=== PATIENT | male | born 1945 | race Caucasian/White ===

== ENCOUNTER 2025-03-22 15:45 | Emergency (ER) | payer MEDICARE, SELFPAY ==
[2025-03-22] VITALS (12 sets, daily range): BP systolic 158; BP diastolic 88; PULSE 69–92; RESP 20; TEMP 36.6; O2SAT 96–100; BMI 27.2
--- NOTE | 2025-03-22 16:14 | CRLHL7_ITS ---
For Patients: As a result of the Century Cures Act, medical imaging exams and procedure reports are released immediately into your electronic medical record. You may view this report before your referring provider. If you have questions, please contact your health care provider. INDICATION: Chest pain. TECHNIQUE: Chest 2 views. COMPARISON: None FINDINGS: Tubes and devices: None. Lungs: Lungs are clear. Hyperinflation. No sign of infiltrate or mass. Pleura: No pleural effusion. No pneumothorax. Heart: Heart size and vasculature are normal in caliber and appearance. Shameka and Mediastinum: No enlargement. Bones and soft tissues: No significant findings. IMPRESSION: Hyperinflation of both lungs. No focal infiltrates. Dictated by Gregorio Carrasco MD @ 03/22/2025 4:36:15 PM (Electronically Signed)
--- NOTE | 2025-03-22 16:15 | ED.GENADULT ---
HPI - General Adult General Time Seen by Provider: 16:15 Date Seen: 03/22/25 Chief complaint: Chest Pain Stated complaint: Chest pain Time Seen by Provider: 03/22/25 15:54 Source: patient Mode of arrival: ambulatory Limitations: no limitations History of Present Illness HPI narrative: Mainor an 80-year-old male with a history of hyperlipidemia, bladder cancer status post cystectomy, chronic kidney disease, no cardiac disease presents emergency department via private car and significant other with chest pain. 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 He did not have any shortness of breath or changes with inspiration. Pain is minimal, 2/10, patient took 6 baby aspirin and 1 full dose aspirin. He had a episode that occurred 2 times similar in the past, usually resolves when he is at rest after 45 minutes. This discomfort has persisted over an hour. Father of an [place] when he was 71. Patient denies any nausea vomiting, no back pain or abdominal pain. Patient is unsure if he injured something. Related Data Home Medications ?Medication ?Instructions ?Recorded ?Confirmed simvastatin 10 mg tablet 10 mg PO DAILY 03/22/25 03/22/25 Allergies Allergy/AdvReac Type Severity Reaction Status Date / Time No Known Drug Allergies Allergy Verified 03/22/25 15:53 Review of Systems Status of ROS: Reports: 10 or more systems reviewed and unremarkable except as noted in History and below Exam Narrative: Exam Narrative: General: No obvious distress sitting comfortably HEENT: Pupils equal round reactive, extraocular muscles intact Neck: Supple, no JVD Lungs: Clear to auscultation bilaterally Heart: Normal sinus rhythm S1-S2 Abdomen: Nontender, soft, bowel sounds present Muscle skeletal: No real tenderness to left anterior chest wall Extremities: No lower extremity edema Neuro: GCS 15 Const: Vital Signs, click to edit/add: Vital Signs - 24 hr 03/22/25 15:54 03/22/25 16:57 03/22/25 17:00 Temperature 97.9 F Pulse Rate 75 80 Pulse Rate [Pulse Oximeter] 92 Respiratory Rate 20 Blood Pressure [Ri ght Upper Arm] 158/88 H Pulse Oximetry 97 96 97 Oxygen Delivery Ca thod Room Air 03/22/25 17:15 03/22/25 17:39 03/22/25 17:45 Temperature Pulse Rate 69 76 83 Pulse Rate [Pulse Oximeter] Respiratory Rate Blood Pressure [Ri ght Upper Arm] Pulse Oximetry 96 99 98 Oxygen Delivery Me thod 03/22/25 18:00 03/22/25 18:15 03/22/25 18:30 Temperature Pulse Rate 79 79 70 Pulse Rate [Pulse Oximeter] Respiratory Rate Blood Pressure [Ri ght Upper Arm] Pulse Oximetry 97 100 97 Oxygen Delivery Me thod 03/22/25 18:45 Temperature Pulse Rate 75 Pulse Rate [Pulse Oximeter] Respiratory Rate Blood Pressure [Ri ght Upper Arm] Pulse Oximetry 98 Oxygen Delivery Me thod Course Course ED Course: ED course: 4:00 PM: aidet performed. vitals are stable. Workup will include IV peripheral, 15 mg IV Toradol, will obtain EKG, point of care troponins, CBC, CRP, NT proBNP, CMP, XR chest PA and lateral. Differential includes ACS, unstable angina, unstable angina, pericarditis, pleurisy, CAD, STEMI, NSTEMI, pulmonary embolism, pneumonia, bronchitis, costochondritis as well as other etiologies. ED disposition pending clinical course. Reevaluation(s) Time of Reevaluation #1: 17:11 Reevaluation #1: EKG showed a normal sinus rhythm, first-degree AV block with premature atrial complexes, no acute ST changes. Point of care troponin 0.03, CBC showed no leukocytosis or anemia, CRP negative, comprehensive metabolic panel showed chronic renal insufficiency, mildly elevation in creatinine 2.5, he will receive 0.9 normal saline bolus, patient's pain resolved, imaging showed no acute cardiopulmonary process, will plan to check 2nd troponin I at 2H. Patient updated on plan. IMPRESSION: Hyperinflation of both lungs. No focal infiltrates. Dictated by Gregorio Carrasco MD @ 03/22/2025 4:36:15 PM Time of Reevaluation #2: 19:13 Reevaluation #2: Second troponin I unchanged at 0.03, patient is still pain free, will schedule patient for an Exercise Stress Echo on an outpatient basis, he should also follow up with his primary care provider over the next 5-7 days. Return if worsening symptoms. Vital Signs Vital signs: Initial Vital Signs Temperature 97.9 F 03/22/25 15:54 Temperature Source Temporal Artery Scan 03/22/25 15:54 Pulse Rate 92 03/22/25 15:54 Respiratory Rate 20 03/22/25 15:54 Blood Pressure 158/88 H 03/22/25 15:54 Blood Pressure Mean 111 H 03/22/25 15:54 Pulse Oximetry 97 03/22/25 15:54 Oxygen Delivery Method Room Air 03/22/25 15:54 Vital Signs Temperature 97.9 F 03/22/25 15:54 Pulse Rate 92 03/22/25 15:54 Respiratory Rate 20 03/22/25 15:54 Blood Pressure 158/88 H 03/22/25 15:54 Pulse Oximetry 97 03/22/25 15:54 Oxygen Delivery Method Room Air 03/22/25 15:54 Temperature 97.9 F 03/22/25 15:54 Pulse Rate 73 03/22/25 19:15 Respiratory Rate 20 03/22/25 15:54 Blood Pressure 158/88 H 03/22/25 15:54 Pulse Oximetry 96 03/22/25 19:15 Oxygen Delivery Method Room Air 03/22/25 15:54 Medications Administered Medications: Discontinued Medications Generic Name Dose Route Start Last Admin Trade Name Freq PRN Reason Stop Dose Admin Sodium Chloride 1,000 mls @ 1,000 mls/hr 03/22/25 17:33 03/22/25 18:50 0.9 % Sodium Chloride 1000 Ml IV 03/22/25 18:32 Infused .Q1H SHARA Infusion Ketorolac Tromethamine 15 mg 03/22/25 16:14 03/22/25 16:47 Ketorolac 15 Mg/Ml Inj IVP 03/22/25 16:15 15 mg ONCE ONE Administration Medical Decision Making Lab Data Labs: Lab Results 03/22/25 03/22/25 03/22/25 Range/Units 16:15 16:20 18:10 WBC 10.45 (4.50-11.00) K/uL RBC 5.16 (4.30-5.90) m/uL Hgb 15.8 (13.5-17.5) gm/dL Hct 47.5 (37.0-53.0) % MCV 92 (80-100) fL MCH 31 (26-34) pg MCHC 33 (32-36) gm/dL RDW Coeff of [place] 12.5 (11.5-15.5) % Plt Count 213 (140-440) K/uL Neut % (Auto) 72.5 H (42.0-72.0) % Lymph % (Auto) 14.4 L (20-44) % [place] % (Auto) 11.8 H (0.0-11.0) % Eos % (Auto) 0.7 (0.0-7.0) % Baso % (Auto) 0.3 (0.0-3.0) % Neut # (Auto) 7.60 H (1.7-7.0) K/uL Lymph # (Auto) 1.50 (0.90-2.90) K/uL [place] # (Auto) 1.20 H (0.00-0.90) K/UL Eos # (Auto) 0.07 (0.00-0.50) K/uL Baso # (Auto) 0.03 (0.00-0.30) K/uL Abs Immat Gran (auto) 0.03 (0.00-0.30) K/uL Imm/Tot Granulo (auto) 0.3 % Sodium 136 (135-149) mmol/L Potassium 4.2 (3.6-5.1) mmol/L Chloride 106 (96-114) mmol/L Carbon Dioxide 22 (20-32) mmol/L Anion Gap 8 (7-15) mEq/L BUN 39 H (7-30) mg/dL Creatinine 2.5 H (0.5-1.5) mg/dL Estimated Creat Clear 26.19 Estimated GFR 25 ml/min Glucose 91 (60-115) mg/dL Calcium 9.7 (8.4-10.6) mg/dL Total Bilirubin 0.6 (0.1-1.5) mg/dL AST 34 (12-35) U/L ALT 39 (4-50) U/L Alkaline Phosphatase 53 (40-150) U/L Troponin I 0.03 (0.01-0.04) ng/mL C-Reactive Protein < 0.5 L (0.5-1.0) mg/dL Total Protein 8.1 (6.0-8.3) g/dL Albumin 4.3 (3.3-5.0) g/dL POC Troponin I 0.03 (0.01-0.04) ng/ml Discharge Plan Discharge Clinical Impression: Chest pain, Chronic kidney disease Patient Disposition: Home w/ Parent or Adult Instructions: Chest Pain (ED) Additional Instructions: To follow up for Exercise Stress Echo as scheduled here in [place]. Follow-up with primary care provider back in [place] over the next 5-7 days. Return if any worsening symptoms. Prescriptions: No Action simvastatin 10 mg tablet 10 mg PO DAILY Follow Up/Referrals: Provider,Not a Local [Primary Care Provider, Family Practice] Stand Alone Forms: [place] Info Instructions
[2025-03-22 16:39] LABS: Troponin, Point-of-Care* 0.03 ng/ml (0.01-0.04)
--- OUTSIDE RECORDS SUMMARY | 2025-03-22 16:53 | XMS_ITS | Encounter Summary ---
Author Organization [facility] Address [address] [place] [address] Care Team Providers Care Hypoid Gear Tester Name Role Phone Martita Amaro MD Primary Care Provider [phone] Encounter Details Date Type Department Care Team (Latest Contact Info) Description 09/28/2017 Correspondence None No Primary/Referring, Phy NEW PATIENT Social History Tobacco Use Types Packs/Day Years Used Date Smoking Tobacco: Former Cigarettes 0 05/17/1972 - 05/17/2007 Smokeless Tobacco: Never Comments:Quit smoking:Quit i n 2007 Alcohol Use Standard Drinks/Week Comments Yes 6 (1 standard drink = 0.6 oz pure alcohol) weekends might have a couple beers Sex and Gender Information Value Date Recorded Sex Assigned at Not on file Legal Sex Male 4:17 AM CDT Gender Identity Not on file Sexual Orientation Not on file Occupation Industry Job Start Date Job End Date Not on file Not on file Not on file Not on file documented as of this encounter Plan of Treatment Upcoming Encounters Date Type Department Care Team (Late st Contact Info) Description 07/17/2025 1:15 PM [employer] FORMER Appointment Ophthalmology at [facility] End [address] [place], [place] [id number] Lona Menjivar MD [address] [place] [address] 11/12/2025 10:30 AM CDT Appointment [place] [id number] D[facility] [address] [place] [id number] Suni Laws MD [address] [place], [place] [id number] documented as of this encounter Visit Diagnoses Not on filedocumented in this encounter Additional Health Concerns Infection Onset Date Last Indicated Resolved Time R/O COVID19 09/26/2021 09/26/2021 09/27/2021 1:34 AM CDT documented as of this encounter Care Teams Hypoid Gear Tester Relationship Specialty Start Date End Date Martita Amaro MD [address] [place] [id number] PCP - General Family Practice 09/06/23 documented as of this encounter
--- OUTSIDE RECORDS SUMMARY | 2025-03-22 16:53 | XMS_ITS | Clinical Summary ---
[facility] Organization [facility] Address [address] [place] [address] Care Team Providers Care Holder Pile Driving Name Role Phone Martita Amaro MD Primary Care Provider [phone] Source Comments You are receiving this document as you are listed as the primary care provider,follow-up provider, or the patient has been referred to you for consultation.This is in compliance with the Medicare and[facility] Incentive [facility],which states Providers who transition their patient to another setting of careor provider of care or refers their patient to another provider of care shouldprovide summary care record for each transition of care or referral. [facility] Allergies No known active allergies Medications Multiple Vitamins-Mineral s (MULTIVITAMIN OR) Take 1 tablet by mouth daily (every 24 hours). 100 13 009 Active insulin syringe-needle 30G X 5/16 inch 0.5 mL 30G X 5/16 0.5 ML Use as directed. 100 each 3 013 Active Pyridoxine HCl (VITAMIN B-6) 100 MG tablet Take 1 Tablet (100 mg) by mouth daily. Active Cyanocobalamin (B-12) 5000 MCG CAPS Active Coenzyme Q10 (COQ10) 200 MG CAPS Take 1 Capsule (200 mg) by mouth daily. Active omega-3 fatty acids (FISH OIL) 1000 MG capsule Take 1 Capsule (1,000 mg) by mouth daily. Active terbutaline (BRETHINE) 5 MG tabletIndication s:Erectile dysfunction after radical prostatectomy At 3 hrs of erection , take 1 tab. At 3 1/2 hrs, take an additional tab. At 4 hrs go to ER. 10 Tablet 10 023 Active NEEDLE, DISP, 22 G (B-D HYPODERMIC NEEDLE 22GX1) 22G X 1Indications:Edward arroyo hypogonadism ([facility]) Safety [place]: Use as directed. 50 Each 023 Active MAGNESIUM CITRATE OR 450 mg. Active sildenafil (VIAGRA) 100 MG tabletIndication s:Erectile dysfunction after radical prostatectomy Take 0.5-1 Tablets (50-100 mg) by mouth as needed. 18 Tablet 4 025 Active compounded injectionIndicat ions:Erectile dysfunction, unspecified erectile dysfunction type Papaverine/ phentolamine/alpr ostadil 30 mg/2 mg/20 mcg/ml. Inject 50-80 units. 5ml, EmpowerRX 5 mL 3 025 Active cholecalciferol (VITAMIN D3) 50 MCG (2000 UT) capsule Take 1 Capsule (2,000 Units) by mouth daily. 90 Capsule 3 025 Active simvastatin (ZOCOR) 20 MG tabletIndication s:Hyperlipidemia , unspecified hyperlipidemia type ([facility]) Take 1 Tablet (20 mg) by mouth daily. 90 Tablet 3 025 Active fluticasone propionate (FLONASE) 50 MCG/ACT nasal solutionIndicati ons:Post-nasal drip Place 2 Sprays into both nostrils daily. 16 g 11 025 Active prednisoLONE acetate (PRED FORTE) 1 % eye drop suspension Place 1 Drop into both eyes daily. 5 mL 6 025 Active fluorometholone (FML) 0.1 % eye drop suspension Place 1 Drop into left eye daily. 5 mL 4 025 Active Syringe, Disposable, (BD PLASTIPAK SYRINGE) 3 MLIndications:Edward arroyo hypogonadism ([facility]) use as directed. 25 Each 1 025 Active NEEDLE, DISP, 23 G (BD DISP NEEDLE) 23G X 1 Inject once weekly as directed. 50 Each 025 Active Needle, Disp, (HYPODERMIC NEEDLE 50DQ3-3/2) 18G X 1-/2 Use with weekly testosterone injections. 50 Each 025 Active testosterone cypionate (DEPO-TESTOSTERO NE) 200 MG/ML injectionIndicat ions:Male hypogonadism ([facility]) Inject 0.4 mL (80 mg) intramuscularly once every week. 10 mL 1 025 Active testosterone (AKA AXIRON) 30 MG/ACT SOLN solutionIndicati ons:Male hypogonadism ([facility]) APPLY DEODORANT FIRST, THEN APPLY 1 PUMP TO EACH ARMPIT EVERY OTHER DAY , ALTERNATING WITH 1 PUMP IN 1 ARMPIT EVERY OTHER DAY 90 mL 020 2020 Discontinued Active Problems Problem Noted Date Diagnosed Date Steroid responders, left 09/19/2024 S/P YAG capsulotomy, right 09/18/2024 Pseudophakia, right eye 03/19/2024 Pseudophakia, left eye 09/15/2023 History of Descemet's stripp ing endothelial keratoplasty (DSEK) 09/15/2023 Fuchs' corneal dystrophy of both eyes 06/23/2023 Advance care planning 04/28/2023 Overview (04/28/2023): Healthcare directive received at clinic on 04/28/23. Signed, dated, and notarized on 04/27/23. Copy sent to HIM. 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 Overview (10/17/2017): IgG kappa m-spike 1.18 Sep 2017 Restless leg syndrome 08/19/2015 Sensorineural hearing loss, asymmetrical 015 Bladder cancer 06/05/2013 Primary localized osteoarthrosis, lower leg 02/15 Overview (01/06/2017): DJD Right Knee Right knee DJD 03/14/2013 Old disruption of anterior cruciate ligament Overview (01/06/2017): Old disruption of anterior cruciate ligament, right knee Chronic kidney disease (CKD), stage III (moderat e) 07/15/2012 Hypogonadism male 02/04/2012 ED (erectile dysfunction) 01/27/2012 History of total cystectomy 07/14/2011 Overview (12/19/2015): catheterize 3 times a day History of prostatectomy 07/14/2011 Overview (12/19/2015): with cystectomy CONVERSION DX 10/14/2007 Overview (01/06/2017): LW Onset: 07/21 ; LW Uncoded Problem, needs review: Rt nephrostomy Coronary atherosclerosis 04/20/2007 Overview (01/06/2017): LW Modifier: abnl nuc stress, inf mi ; CAD NOS Bunion 05/07/2006 Diverticulosis of large intestine 05/03/2005 Overview (01/06/2017): LW Onset: 41Dec05 ; Diverticulosis Colon Hyperlipidemia 10/21/2002 Chronic kidney disease, stage 3b Resolved Problems Problem Noted Date Diagnosed Date Resolved Date Pseudophakia, right eye 03/19/2024 11/0 07/2023 Fuchs' corneal dystrophy of left eye 06/24/2023 03/19/2024 Fuchs' corneal dystrophy of right eye 06/24/2023 03/19/2024 NS (nuclear sclerosis), left 06/23/2023 09/15/2023 NS (nuclear sclerosis), right 06/23/2023 03/19/2024 Generalized anxiety disorder 01/07/2012 07/15/2012 Hyperplasia of prostate with out urinary obstruction 03/24/2004 06/12/2005 Overview (01/06/2017): LW Onset: 27Nay12 ; Prostatism w/o Urinary Obstruction Tobacco use disorder 10/21/2002 015 Overview (01/06/2017): Tobacco Abuse Encounters Date Type Department Care Team Description 01/02/2025 10:00 AM CDT Office Visit Ophthalmology at [facility] [address] [place] [address] Steroid responders, left (Primary Dx) from Last 3 Months Immunizations Immunization Administration Dates Next Due Flu Vac Preserv Free (3+yrs) 01/07/2012, 2009,03/14/2007,2005 Influenza (Fluzone 0.25, 6-35 mos) 2013 Influenza IIV3 (Trivalent) F luzone Highdose, 65+ Yrs (54043) 02/09/2019,02/21/2018,04/14/2017,2016,02/18/2015,03/06/2014 Influenza IIV4 (Quadrivalent ) 0.5mL (61871) 2013 Influenza IIV4 (Quadrivalent ) Fluad, 65+ Yrs 04/13/2023,04/03/2021,02/22/2020 Influenza IIV4 (Quadrivalent ) Fluzone, 65+ Yrs 04/06/2022 Influenza aIIV3 65+ Years (Fluad) 03/07/2024 Influenza, Unspecified Formulation 2009,,03/22/2006 Moderna COVID-19 12+ (Spikevax) 03/10/2024 PCV13 (Prevnar) 07/03/2014 PPSV23 (Pneumovax) 04/25/2009,05/27/1998 Pfizer Monovalent 12+ Purple Top 04/03/2021,04/11/2020,07/31/2020 RSV Arexvy 03/10/2024 TDAP (ADACEL) 07/14/2011 TDAP (BOOSTRIX) 07/01/2022 Td 02/15/2003,02/15/2003 Tdap 07/14/2011 Zoster (Zostavax) 07/15/2012 Zoster RZV (Shingrix) 09/21/2020,06/03/2020 Family History Medical History Relation Name Comments Cataract Mother Delete Hypertension Mother Delete Thyroid Disorder Mother Delete Cancer, Skin Brother melanoma Cataract Maternal Aunt Eusebia Diabetes Maternal Aunt Eusebia Diabetes Maternal Grandmother Sofi Stroke Maternal Uncle Raheel Glaucoma Paternal Aunt Cancer Sister 1 Piper & Tila Cancer, breast Sister 1 Piper & Tila passed radha y Cancer, Breast Sister 2 Delete mastectomy, c ured Heart Disease Sister 2 Delete Amblyopia/Strabismus Negative Family History Blindness Negative Family History Macular Degeneration Negative Family History Retinal Detachment Negative Family History Relation Name Status Comments Father Mother Delete Brother Maternal Aunt Eusebia Maternal Grandmother Sofi Maternal Uncle Raheel Paternal Aunt Sister 1 Piper & Tila Sister 2 Delete Social History Tobacco Use Types Packs/Day Years Used Date Smoking Tobacco: Former Cigarettes 1 35 0 05/17/1972 - 05/17/2007 Passive Smoke Exposure: Past Smokeless Tobacco: Never Tobacco Cessation:Counseling Given: Not Answered Comments:Quit smoking:Quit in 2007 Alcohol Use Standard Drinks/Week Comments Yes 1 (1 standard drink = 0.6 oz pur e alcohol) occasional beer Humiliation, Afraid, Rape, and Kick questionnair e Answer Date Recorded Fear of Current or Ex-Partner Not on file Emotionally Abused Not on file 09/15/2023 Within the last year, have y ou been kicked, hit, slapped, or otherwise physically hurt by your partner or ex-partner? No 09/15/2023 Within the last year, have y ou been raped or forced to have any kind of sexual activity by your partner or ex-partner? No 09/15/2023 PHQ-2 Answer Date Recorded PHQ-2 Score 0 08/07/2024 Sex and Gender Information Value Date Recorded Sex Assigned at Not on file Legal Sex Male 4:17 AM CDT Gender Identity Not on file Sexual Orientation Not on file Occupation Industry Job Start Date Job End Date Not on file Not on file Not on file Not on file Last Filed Vital Signs Vital Sign Reading Time Taken Comments Blood Pressure 131/79 08/07/2024 9:51 AM CDT Pulse 74 08/07/2024 9:51 AM CDT Temperature 36.7 C (98.1 F) 03/07/2024 10:49 AM CDT Respiratory Rate 16 11/01/2023 10:45 AM CDT Oxygen Saturation 98% 11/01/2023 10:45 AM CDT Inhaled Oxygen Concentration - - Weight 89.4 kg (197 lb) 08/07/2024 9:51 AM CDT Height 186.1 cm (6' 1.25) 08/07/2024 9:51 AM CD T Body Mass Index 25.81 08/07/2024 9:51 AM CDT Plan of Treatment Upcoming Encounters Date Type Department Care Team (Late st Contact Info) Description 07/17/2025 1:15 PM ELECTRONICS RECYCLER Appointment Ophthalmology at [facility] [address] [place] [address] Lona Menjivar MD [address] [place] [address] 11/12/2025 10:30 AM CDT Appointment [place] [address] [place] [address] [id number] Suni Laws MD [address] [place] [address] [phone] Health Maintenance Due Date Last Done Comments Pneumococcal PCV20 Immunization Discussion 1945 COVID-19 Vaccine ( season) 2025 03/10/2024, 04/03/2021, 08/21/2020, Additional history exists Influenza Vaccine (#1) 2025 , 04/13/2023, 04/06/2022, Additional history exists Medicare Annual Wellness Visit 08/07/2025 08/07/2024, 07/29/2023, 09/04/2022, Additional history exists Prediabetes: HGBA1C 08/07/2025 08/07/2024, 07/29/2023, 09/04/2022, Additional history exists Colonoscopy 02/04/2026 02/04/2021, 08/0 08/2015, 08/13/2010, Additional history exists DTaP/Tdap/Td Vaccine (4 - Tdap) 07/01/2032 07/01/2022, 07/14/2011, 07/14/2011, Additional history exists Pneumococcal Vaccine 50+ Yrs Completed 07/03/2014, 04/25/2009, 04/25/2009 (Completed), Additional history exists Zoster/Shingles Vaccine Completed 09/22/19, 06/03/2020, 07/15/2012 RSV Vaccine Completed 03/10/2024 Cholesterol Discontinued 08/07/2024, 07/15, 09/04/2022, Additional history exists HepA Vaccine Aged Out No longer eligi ble based on patient's age to complete this topic HepB Vaccine Aged Out No longer eligi ble based on patient's age to complete this topic Hib Vaccine Aged Out No longer eligi ble based on patient's age to complete this topic MCV4 Vaccine Aged Out No longer eligi ble based on patient's age to complete this topic Meningococcal B Vaccine Aged Out No l onger eligible based on patient's age to complete this topic Medical Devices Implanted Type Area Asphalt Roller Operator Device Identifier Shelf Expiration Date Model / Serial / Lot Cornea Whole Rt - [id number] Implanted:Qty: 1 on 11/01/2023 by Lona Menjivar MD at [facility] BIOLOGIC Right: EYE UNKNOWN 11/09/2023 [id number] / [id number] / [id number] OD-C Lens Iol Tecnis Zcb00 22.0 - [id number] Implanted:Qty: 1 on 09/15/2023 by Lona Menjivar MD at [facility] DEVICE Left: EYE [employer] 11/27/2026 [id number] / [id number] / Lens Iol Tecnis Zcb00 22.0 - [id number] Implanted:Qty: 1 on 11/01/2023 by Lona Menjivar MD at [facility] DEVICE Right: EYE [employer] 03/19/2027 [id number] / [id number] / Human Corneal Transplant Tissue Implanted:Qty: 1 on 09/15/2023 by Lona Menjivar MD at [facility] Left: EYE [employer] 09/25/2023 CORNEA / / Description:Tissue ID [id number] OD-C [id number]; cornea/whole; Racheal gift of sight; donor ID [id number] Procedures Procedure Name Priority Date/Time Associated Diagnosis Comments HGB A1C Routine 08/07/2024 10:45 AM CDT Prediabetes LIPID PANEL & DIRECT LDL (IF NEEDED) Routine 08/07/2024 10:45 AM CDT Hyperlipidemia, unspecified hyperlipidemia type ([facility]) ENDOSCOPY, COLON, SCREENING/DIAGNOST IC Routine 02/04/2021 7:34 AM CDT Screening for colon cancer Encounter for Medicare annual wellness exam from Last 3 Months or Most Recently Relevant to Health Maintenance Results * (ABNORMAL) Lipid Panel and Direct LDL(If Needed) (08/07/2024 10:45 AM CDT) Cholesterol 118 0 - 199 mg/dL 08/07/2024 3:16 PM CDT [facility] Triglyceride 186(H) <=149 mg/dL 08/07/2024 3:16 PM CDT [facility] HDL Cholesterol 29(L) >=40 mg/dL 3:16 PM CDT [facility] LDL, Calculated 52 <130 mg/dL 3:16 PM CDT [facility] Non HDL Chol, Calculated 89 <=159 mg/dL 08/07/2024 3:16 PM CDT [facility] Cholesterol/HDL Ratio 4.1 <=5.0 08/07/2024 3:16 PM CDT [facility] Hours Fasting 0.1 8 - 12 Hours 08/07/2024 3:16 PM CDT [facility] Blood Venipuncture / Unknown 08/07/2024 10:45 AM CDT 08/07/2024 10:45 AM CDT us Martita Amaro MD LAB_1 Final Resul t [facility] [address] [place], [place] [address] * (ABNORMAL) Hgb A1C (08/07/2024 10:45 AM CDT) Hemoglobin A1C 5.9(H) <=5.6 % 08/07/2024 5:56 PM CDT [facility] Estimated Average Glucose (Calc) 123 < 117 mg/dL 08/07/2024 5:56 PM CDT [facility] Comment:Estimated average gl ucose (eAG) converts A1c into glucose units (mg/dL) and estimates average glucose over the past approximately 3 months. The eAG reference interval (<117 mg/dL) corresponds to an A1c of <5.7%. Blood Venipuncture / Unknown 08/07/2024 10:45 AM CDT 08/07/2024 10:45 AM CDT Narrative [facility] - 08/07/2024 5:56 PM CDT For patients not previously diagnosed with diabetes: 5.7-6.4%: Increased risk for diabetes 6.5% and greater: Diagnostic for diabetes For patients diagnosed with diabetes: <8.0%: Goal of therapy for ages 18-75 Clinicians may recommend a higher or lower goal for specific individuals. us Martita Amaro MD LAB_1 Final Resul t [facility] [address] * Endoscopy, Colon, Screening/Diagnostic (02/04/2021 7:34 AM CDT) Anatomical Region Laterality Modality Other 02/04/2021 7:34 AM CDT Narrative 02/04/2021 7:34 AM CDT Patient Name: Mainor Donaldson Procedure Date: 02/04/2021 7:34 AM Date of : 1945 Admit Type: Outpatient Age: 75 Gender: Male Note Status: Finalized Attending MD: Demetri Douglas MD Procedure: Colonoscopy Indications: Colon cancer screening in patient at increased risk: Family history of 1st-degree relative with colon polyps Providers: Demetri Douglas MD, Lydia Panchal RN Referring MD: Lizzeth Ortiz Medicines: Midazolam 3 mg IV, Fentanyl 150 micrograms IV Complications: No immediate complications. Estimated blood loss: None. Procedure: After I obtained informed consent, the scope was passed under direct vision. Throughout the procedure, the patient's blood pressure, pulse, and oxygen saturations were monitored continuously. The [id number] was introduced through the anus and advanced to the cecum, identified by appendiceal orifice and ileocecal valve. The colonoscopy was performed without difficulty. The patient tolerated the procedure well. The quality of the bowel preparation was good. Findings: The perianal and digital rectal examinations were normal. The entire examined colon appeared normal. Moderate Sedation: Moderate (conscious) sedation was administered by the endoscopy nurse and supervised by the endoscopist. The patient's oxygen saturation, heart rate, blood pressure and response to care were monitored. Total physician intraservice time was 26 minutes. Impression: - The entire examined colon is normal. - No specimens collected. Recommendation: - Repeat colonoscopy in 5 years for screening purposes. - Call your siblings and tell them they need to start every 5 year colonoscopies when they turn 40 for sure and maybe age 35. The [employer] has not made a recommendation on age 35 yet. Procedure Code(s): --- Professional --- G0105, Colorectal cancer screening; colonoscopy on individual at high risk 49643, Moderate sedation; each additional 15 minutes intraservice time G0500, Moderate sedation services provided by the same physician or other qualified health child care performing a gastrointestinal endoscopic service that sedation supports, requiring the presence of an independent trained observer to assist in the monitoring of the patient's level of consciousness and physiological status; initial 15 minutes of intra-service time; patient age 5 years or older (additional time may be reported with 41942, as appropriate) Diagnosis Code(s): --- Professional --- Z83.71, Family history of colonic polyps CPT copyright 2019 [employer]. All rights reserved. The codes documented in this report are preliminary and upon delivery recruiter review may be revised to meet current compliance requirements. Demetri Douglas MD 02/04/2021 8:27:23 AM This document has been electronically signed. Number of Addenda: 0 Note Initiated On: 02/04/2021 7:34 AM Endoscopy Report Procedure Note Joaquin Steele MD - 02/04/2021 Patient Name: Mainor Donaldson Procedure Date: 02/04/2021 7:34 AM Date of : 1945 Admit Type: Outpatient Age: 75 Gender: Male Note Status: Finalized Attending MD: Demetri Douglas MD Procedure: Colonoscopy Indications: Colon cancer screening in patient at increased risk: Family history of 1st-degree relative with colon polyps Providers: Demetri Douglas MD, Lydia Panchal RN Referring MD: Lizzeth Ortiz Medicines: Midazolam 3 mg IV, Fentanyl 150 micrograms IV Complications: No immediate complications. Estimated blood loss: None. Procedure: After I obtained informed consent, the scope was passed under direct vision. Throughout the procedure, the patient's blood pressure, pulse, and oxygen saturations were monitored continuously. The [id number] was introduced through the anus and advanced to the cecum, identified by appendiceal orifice and ileocecal valve. The colonoscopy was performed without difficulty. The patient tolerated the procedure well. The quality of the bowel preparation was good. Findings: The perianal and digital rectal examinations were normal. The entire examined colon appeared normal. Moderate Sedation: Moderate (conscious) sedation was administered by the endoscopy nurse and supervised by the endoscopist. The patient's oxygen saturation, heart rate, blood pressure and response to care were monitored. Total physician intraservice time was 26 minutes. Impression: - The entire examined colon is normal. - No specimens collected. Recommendation: - Repeat colonoscopy in 5 years for screening purposes. - Call your siblings and tell them they need to start every 5 year colonoscopies when they turn 40 for sure and maybe age 35. The [place] has not made a recommendation on age 35 yet. Procedure Code(s): --- Professional --- G0105, Colorectal cancer screening; colonoscopy on individual at high risk 88640, Moderate sedation; each additional 15 minutes intraservice time G0500, Moderate sedation services provided by the same physician or other qualified health child care performing a gastrointestinal endoscopic service that sedation supports, requiring the presence of an independent trained observer to assist in the monitoring of the patient's level of consciousness and physiological status; initial 15 minutes of intra-service time; patient age 5 years or older (additional time may be reported with 23945, as appropriate) Diagnosis Code(s): --- Professional --- Z83.71, Family history of colonic polyps CPT copyright 2019 [employer]. All rights reserved. The codes documented in this report are preliminary and upon delivery recruiter review may be revised to meet current compliance requirements. Demetri Douglas MD 02/04/2021 8:27:23 AM This document has been electronically signed. Number of Addenda: 0 Note Initiated On: 02/04/2021 7:34 AM Endoscopy Report Lizzeth Ortiz DO ET GI PROCEDURE ORDERA BLES Final Result from Last 3 Months or Most Recently Relevant to Health Maintenance Insurance UCARE MEDICARE UCARE MEDICARE [facility] MEDICARE Advance Directives Documents on File Type Date Recorded Patient Fire Management Officer Expl anation HEALTHCARE DIRECTIVE 04/27/2023 Jay Jay Donaldson HEALTH CARE DIRECTIVE 04/27/2023 Advance Directive/Living Will/Durable Power of Attny on file/POLST PN 08/04/2013 4:07 PM Healthcare Agents on File Name Relationship Healthcare Agent Relationshi p Communication Jay Jay Donaldson Son Health Care Agent Care Teams Holder Pile Driving Relationship Specialty Start Date End Date Martita Amaro MD [address] [place], [place] [address] PCP - General Family Practice 09/06/23
--- OUTSIDE RECORDS SUMMARY | 2025-03-22 16:53 | XMS_ITS | Clinical Summary ---
Author Organization [employer] [facility] Address [address] [place] [id number] Care Team Providers Care Assistant Professor Of German Name Role Phone Pcp, No Primary Care Provider Unavailabl e Allergies No known active allergies Medications aspirin (ECOTRIN) 81 mg enteric coated tablet Take 81 mg by mouth once daily with a meal. Active Coenzyme Q10 200 mg capsule Take by mouth once daily. Active medication order composer Papaverine/phentola mine/alprostadil 30 mg/2 mg/20 mcg/ml. Inject 50-80 units. 5 ml. Uses occasionally Active cyanocobalamin , vitamin B-12, 5,000 mcg cap Take by mouth once daily. Active melatonin 10 mg tab Take by mouth at bedtime. Active multivit with iron,minerals (MULTIVITAMIN AND MINERALS ORAL) Take 1 Tablet by mouth once daily. Active omega-3 fatty acids (Fish Oil Concentrate) cap Take 1,000 mg by mouth once daily. Active pyridoxine, vitamin B6, (VITAMIN B6) 100 mg tablet Take 100 mg by mouth once daily. Active simvastatin (ZOCOR) 20 mg tablet Take 20 mg by mouth once daily with evening meal. Active temazepam (RESTORIL) 7.5 mg capsule Take 7.5 mg by mouth at bedtime if needed for Sleep. Active testosterone cypionate 200 mg/mL kit Inject intramuscular. Inject 0.5 ml intramuscularly once every week Active oxyCODONE (ROXICODONE) 5 mg immediate release tabletIndicati ons:Post-op pain Take 1 Tablet (5 mg) by mouth every 6 hours if needed for Pain. 15 Tablet 11/16/19 21 Active ibuprofen (ADVIL; MOTRIN) 600 mg tabletIndicati ons:Post-op pain Take 1 Tablet (600 mg) by mouth every 6 hours if needed for Pain. Maximum of 3200 mg in 24 hours. 30 Tablet 11/16/19 21 Active sennosides-doc usate (SENOKOT S) (8.6-50 mg) tabletIndicati ons:Post-op pain Take 2 Tablets by mouth once daily. 20 Tablet 11/16/19 21 Active Active Problems Problem Noted Date Diagnosed Date Cataract Social History Tobacco Use Types Packs/Day Years Used Date Smoking Tobacco: Former Cigarettes 0 05/17/1972 - 05/17/2007 Smokeless Tobacco: Never Alcohol Use Standard Drinks/Week Comments Yes 2 (1 standard drink = 0.6 oz pur e alcohol) Sex and Gender Information Value Date Recorded Sex Assigned at Not on file Legal Sex Male 11:48 AM CDT Gender Identity Not on file Sexual Orientation Not on file Obstetrics History Last Filed Vital Signs Vital Sign Reading Time Taken Comments Blood Pressure 142/75 11/15/2020 2:46 PM CDT Pulse 73 11/15/2020 2:46 PM CDT Temperature 36.6 C (97.8 F) 11/15/2020 2:13 PM CDT Respiratory Rate 16 11/15/2020 2:46 PM CDT Oxygen Saturation 95% 11/15/2020 2:46 PM CDT Inhaled Oxygen Concentration - - Weight 92.1 kg (203 lb) 11/15/2020 11:54 AM CDT Height 188 cm (6' 2) 11/15/2020 11:54 AM CDT Body Mass Index 26.06 11/15/2020 11:54 AM CDT Plan of Treatment Health Maintenance Due Date Last Done Comments Tetanus booster 02/27/1955 Depression screening for age 12+ 1956 BMI (ht and wt on same day) for age 18+ 02/27/1962 Pneumococcal series for age 50+ (1 of 1 - PCV) 02/27/1994 Zoster (shingles) series for age 50+ (1 of 2) 02/27/1994 RSV vaccine for adults or (1 - 1-dose 75+ series) 02/27/2019 COVID-19 vaccine series ( - season) 2025 08/21/2020, 07/31/2020 Influenza Vaccine (#1) 2025 Hepatitis B series for 19+ Aged Out N o longer eligible based on patient's age to complete this topic Medical Devices Implanted Type Area Real Time Analyst Device Identifier Shelf Expiration Date Model / Serial / Lot Mesh Inguinal Lg Perfix Plug 6/ - [id number] Implanted:Qty: 1 on 11/15/2020 by Say Melo MD at [facility] Left: Inguinal [employer] 06/13/2025 [id number] / / [id number] Insurance [employer] MEDICARE ADVANTAGE MR MEDICARE PART A HB ONLY Advance Directives * Full Code (Latest Code Status on File) Date Activated Date Inactivated Comments 11/15/2020 11:55 AM 11/15/2020 5:02 PM Question Answer Comments Code Status Discussion: Not Discussed Care Teams Assistant Professor Of German Relationship Specialty Start Date End Date Pcp, No . PCP - General 05/07/21
--- OUTSIDE RECORDS SUMMARY | 2025-03-22 16:53 | XMS_ITS | Clinical Summary ---
Author Organization [facility] Address [address] [place] [id number] Care Team Providers Care Immunopathologist Name Role Phone Unavailable Primary Care Provider Unavailabl e Allergies No known active allergies Medications simvastatin (ZOCOR) 20 MG tablet Take 20 mg by mouth 08/10/2018 Active Active Problems No known active problems Social History Tobacco Use Types Packs/Day Years Used Date Smoking Tobacco: Never Smokeless Tobacco: Never Alcohol Use Standard Drinks/Week Comments Yes 1 (1 standard drink = 0.6 oz pur e alcohol) AUDIT-C Answer Date Recorded Q1: How often do you have a drink containing alc ohol? 2-3 times a week 01/25/2019 Q2: How many drinks containi ng alcohol do you have on a typical day when you are drinking? 1 or 2 01/25/2019 Q3: How often do you have si x or more drinks on one occasion? 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
[2025-03-22 17:03] LABS: Hematocrit* 47.5 % (37.0-53.0); Hemoglobin* 15.8 gm/dL (13.5-17.5); Immature Granulocytes Abs Auto 0.03 K/uL (0.00-0.30); Immature Granulocytes Pct Auto 0.3 %; Lymphocytes Absolute Auto 1.50 K/uL (0.90-2.90); Mean Corpuscular HGB Conc 33 gm/dL (32-36); Mean Corpuscular Hemoglobin 31 pg (26-34); Mean Corpuscular Volume 92 fL (80-100); RDW Coefficient of Variation % 12.5 % (11.5-15.5); Red Blood Count* 5.16 m/uL (4.30-5.90); White Blood Count* 10.45 K/uL (4.50-11.00)
[2025-03-22 17:09] LABS: Albumin* 4.3 g/dL (3.3-5.0); Chloride* 106 mmol/L (96-114); Potassium* 4.2 mmol/L (3.6-5.1); Sodium* 136 mmol/L (135-149)
[2025-03-22 17:11] LABS: Anion Gap 8 mEq/L (7-15); Blood Urea Nitrogen* 39 mg/dL (7-30); Carbon Dioxide* 22 mmol/L (20-32); Creatinine* 2.5 mg/dL (0.5-1.5); Est. Creatinine Clearance* 26.19; Estimated Glomerular Filt Rate 25 ml/min; Slide Review Reflex No
[2025-03-22 17:12] LABS: Alanine Aminotransferase* 39 U/L (4-50); Alkaline Phosphatase* 53 U/L (40-150); Aspartate Amino Transferase* 34 U/L (12-35); Bilirubin Total* 0.6 mg/dL (0.1-1.5); Calcium* 9.7 mg/dL (8.4-10.6); Glucose* 91 mg/dL (60-115); Total Protein* 8.1 g/dL (6.0-8.3)
== END 2025-03-22 19:23 | disposition home or self-care (01) ==
PROVIDERS: Emergency Provider Student in an Organized Health Care Education/Training Program
DX: R07.9 Chest pain, unspecified (principal); N18.9 Chronic kidney disease, unspecified
CPT/HCPCS: 36415; 71046; 80053; 84484; 85025; 86140; 93005; 96361; 96374; 99283; 99284; 99285; J1885; J7030

== ENCOUNTER 2025-04-10 12:20 | Outpatient (CLI) | payer MEDICARE, SELFPAY ==
[2025-04-10 13:44] VITALS: BP 144/76; PULSE 93; RESP 18
--- NOTE | 2025-04-10 13:55 | W.PM.STED ---
Stress Test Note Date Date Seen: 04/10/25 Date of test: 04/10/25 Providers Referring provider: Yang James Primary care provider: Not a Local Provider Stress test physician: Dona Nix Stress Test Note Stress test ordered: Stress Echo Indication for test: Chest pain Stress test medicine: None Results discussion: Resting EKG: Sinus rhythm, 74 beats per minute. Resting blood pressure: 130/84 Stress test: Patient has consented on ordered stress test treadmill exercise stress echo, agrees to proceed. Standard Soham protocol was followed. Patient did develop asymptomatic ventricular ectopy, did see PVCs, did see couplets, 1 triplet and 1 run of 6 beat ventricular tachycardia, was able to print EKGs documenting this. Patient had no symptoms during this time, was actively exercising. Patient id exercise to 6 minutes 8 seconds, stopping due to being at target heart rate and meeting exercise capacity. This was equivalent to 7.3 Mets. Patient had a maximum heart rate of 130 beats per minute which was 110% of a calculated target heart rate of 118. He had a maximal blood pressure during exercise of 152/82. Giving him a rate pressure product of 19,760. There was no other arrhythmia, no diagnostic ischemic change. Patient did experience some leg tiredness due to the incline and some level of shortness of breath but not unexpected for his level of activity. Patient had no chest pain or chest symptoms during this test. Await echo images to couple this for a full formal diagnostic. Impression: Subjectively negative, objectively positive EKG with asymptomatic ventricular tachycardia, no diagnostic ischemia. Follow up suggested: Patient and I discussed the ventricular ectopy/ventricular tachycardia. I have sent in metoprolol XL 25 mg daily to his pharmacy, 30 day prescription. Did confirm with him his only medication right now is his cholesterol medication, simvastatin. I did talk to a nurse Ibis at his [facility]. They actually have Dr. Amaro as his primary in the system. Note will go to this physician. They will reach out to the patient to get the patient to follow up, have recommended consideration for Cardiology referral. We will try to fax results to them, their fax number is [phone]. Clinic phone number is [phone]. Patient is discharged in stable condition, await echo images to couple this for a full formal diagnostic.
== END 2025-04-10 13:54 | disposition home or self-care (01) ==
LOC: STRESS 12:25
PROVIDERS: Visit Provider Student in an Organized Health Care Education/Training Program
DX: R07.9 Chest pain, unspecified (principal)
CPT/HCPCS: 93016; 93325; 93351